=== PATIENT | female | born 1980 | race Caucasian/White ===

== ENCOUNTER 2018-07-06 05:01 | Emergency (ER) | payer MEDICAID ==
[~2018-07-06] VITALS: Ht 162.6 cm; Wt 85.0 kg
[2018-07-06] MEDS ORDERED: DIPHENHYDRAMINE 50MG/ML VIAL IV ONE (07:00)
[2018-07-06] MEDS ORDERED: SODIUM CHLORIDE 0.9% 1,000 ML IV ONE (07:00)
[2018-07-06 10:36] VITALS: BP 151/97
== END 2018-07-06 10:41 | disposition home or self-care (01) ==
LOC: ER 08:24
DX: R51 Headache (principal); I10 Essential (primary) hypertension; Z98.890 Other specified postprocedural states
CPT/HCPCS: 81025; 96374; 99285; J1200; J7030

== ENCOUNTER 2021-11-01 09:01 | Emergency (ER) | payer MEDICAID ==
[~2021-11-01] VITALS: Ht 162.6 cm; Wt 91.0 kg
[2021-11-01] MEDS ORDERED: ONDANSETRON HCL 4MG/2ML INJ IV STA (09:50)
[2021-11-01] MEDS ORDERED: SODIUM CHLORIDE 0.9% 1,000 ML IV ONE (10:00)
[2021-11-01 10:54] LABS: CHLORIDE 108 mEq/L (98-107)
[2021-11-01 10:56] LABS: HCG SCREEN NEGATIVE
[2021-11-01 11:01] LABS: EOSINOPHILS % 3.2 % (0.0-5.0); HEMATOCRIT. 33.9 % (36.0-48.0); HEMOGLOBIN. 11.3 g/dL (12.0-16.0); LYMPHOCYTES % 30.6 % (20.0-50.0); MEAN CORPUSCULAR VOLUME 74.7 fL (81.0-99.0); MEAN PLATELET VOLUME 8.2 fl (7.4-10.4); MONOCYTES % 5.3 % (2.0-8.0); NEUTROPHILS % 59.9 % (40.0-76.0); PLATELET 235 x1000/uL (130-400); RED BLOOD CELL COUNT 4.53 mill/uL (4.2-5.4); RED CELL DISTRIBUTION WIDTH 15.5 % (11.6-14.6)
[2021-11-01 12:19] LABS: CLARITY URINE CLEAR (CLEAR); COLOR URINE YELLOW (YELLOW); KETONES URINE NEGATIVE (NEGATIVE); LEUKOCYTE ESTERASE URINE NEGATIVE (NEGATIVE); NITRITE URINE NEGATIVE (NEGATIVE); OCCULT BLOOD URINE NEGATIVE (NEGATIVE); PH URINE 6.5 (4.5-8.0); PROTEIN URINE NEGATIVE (NEGATIVE); SPECIFIC GRAVITY URINE 1.009 (1.005-1.030); UROBILINOGEN URINE 0.2 E.U./dL (0.2-1.0)
[2021-11-01 15:10] VITALS: BP 144/95
== END 2021-11-01 15:34 | disposition home or self-care (01) ==
LOC: ER 09:01
DX: R10.9 Unspecified abdominal pain (principal); R11.2 Nausea with vomiting, unspecified; I10 Essential (primary) hypertension; E87.8 Other disorders of electrolyte and fluid balance, not elsewhere classified; Z98.890 Other specified postprocedural states
CPT/HCPCS: 36415; 74021; 80053; 81003; 83690; 84703; 85025; 93005; 96361; 96374; 99285; J2405; J7030; Z7610